=== PATIENT | female | born 1950 | race Caucasian/White ===

== ENCOUNTER 2022-02-22 07:50 | Day surgery (SDC) | payer MEDICARE, OTHER ==
[2022-02-20 15:15] VITALS: BMI 32.5
[2022-02-22] MEDS ORDERED: Oxymetazoline HCl 0.05% (30 ML BOT) ONE (08:26)
[2022-02-22 08:51] LABS: Hemoglobin 13.7 g/dL (12.0-16.0)
[2022-02-22] MEDS ORDERED: fentaNYL Citrate/PF 100 MCG/2 ML SYRINGE ONE ×2 (09:09→10:54)
[2022-02-22] MEDS ORDERED: Lidocaine 4% Topical Sol 50 ML BOT ONE (09:09)
[2022-02-22 09:12] LABS: Anion Gap 13 mmol/L (10-20); BUN (Urea Nitrogen) 22 mg/dL (9.8-20.1); Calc. Creatinine Clearance 88 mL/min (70-130); Calcium 9.1 mg/dL (7.8-10.44); Carbon Dioxide 22 mmol/L (23-31); Chloride 107 mmol/L (98-107); Estimated GFR 79; Glucose 99 mg/dL (83-110); Potassium 3.7 mmol/L (3.5-5.1); Sodium 138 mmol/L (136-145)
[2022-02-22] MEDS ORDERED: Ondansetron PF 4 MG/2 ML Vial ONE (09:30)
[2022-02-22] MEDS ORDERED: ePHEDrine 50 MG/ML VIAL ONE (09:30)
[2022-02-22] MEDS ORDERED: Dexamethasone 20 MG/5 ML VIAL ONE (09:30)
[2022-02-22] MEDS ORDERED: Succinylcholine 200 MG/10 ml SYRINGE FS ONE (09:30)
[2022-02-22] MEDS ORDERED: PROPOFOL 200 MG/20 ML VIAL ONE (09:30)
[2022-02-22] MEDS ORDERED: Lidocaine 1% PF 5 ML VIAL ONE (09:30)
[2022-02-22] MEDS ORDERED: Rocuronium Bromide 10 MG/ML (10ML VIAL) ONE (09:30)
[2022-02-22] MEDS ORDERED: Fentanyl 100 MCG/2 ML VIAL ONE (10:24)
[2022-02-22] MEDS ORDERED: Promethazine HCl 25 MG/ML VIAL ONE (10:26)
[2022-02-22] MEDS ORDERED: HYDROcodone/Acetaminophen 5/325 mg Tablet ONE (11:38)
== END 2022-02-22 12:15 | disposition home or self-care (01) ==
LOC: SDC 07:50
PROVIDERS: ATTEND Specialist
PROC: 09SM0ZZ Reposition Nasal Septum, Open Approach (ICD-10-PCS; principal; 2022-02-22)
PROC: 09SL8ZZ Reposition Nasal Turbinate, Via Natural or Artificial Opening Endoscopic (ICD-10-PCS; 2022-02-22)
DX: J34.2 Deviated nasal septum (principal); J34.3 Hypertrophy of nasal turbinates; G47.33 Obstructive sleep apnea (adult) (pediatric); I10 Essential (primary) hypertension; E78.5 Hyperlipidemia, unspecified; J45.909 Unspecified asthma, uncomplicated; E03.9 Hypothyroidism, unspecified; M19.90 Unspecified osteoarthritis, unspecified site; Z79.899 Other long term (current) drug therapy
CPT/HCPCS: 36415; 80048; 85014; 85018; 93005; 93010; J1100; J2405; J2550; J2704; J3010; J3490